=== PATIENT | female | born 1960 | race Caucasian/White ===

== ENCOUNTER 2021-07-06 11:16 | Emergency (ER) | payer BC, MEDICAID ==
[~2021-07-06] VITALS: Ht 172.7 cm; Wt 26.9 kg
[2021-07-06 11:18] VITALS: BP 122/78
[2021-07-06] MEDS ORDERED: LEVO500T89 PO (15:40)
[2021-07-06] MEDS ORDERED: NEOM10DR45 RIGHT EAR (15:40)
== END 2021-07-06 16:50 | disposition home or self-care (01) ==
LOC: ER 11:16
DX: H60.91 Unspecified otitis externa, right ear (principal); L03.211 Cellulitis of face; F17.210 Nicotine dependence, cigarettes, uncomplicated; Z79.2 Long term (current) use of antibiotics; Z88.1 Allergy status to other antibiotic agents; Z88.8 Allergy status to other drugs, medicaments and biological substances
CPT/HCPCS: 82948; 93005; 99283; 99284

== ENCOUNTER 2023-02-02 20:03 | Emergency (ER) | payer MEDICARE, MEDICAID | END 2023-02-02 20:21 | disposition left against medical advice (07) | LOC: ER 20:03 | DX: M54.9 Dorsalgia, unspecified (principal); Z53.21 Procedure and treatment not carried out due to patient leaving prior to being seen by health care provider ==